=== PATIENT | female | born 1945 | race Caucasian/White ===

== ENCOUNTER → 2020-05-15 08:26 | Outpatient (CLI) | payer MEDICARE, BC ==
[2020-05-15 09:22] LABS: INR 0.93 (0.85-1.17); PROTIME 12.5 SECONDS (11.6-15.0)
[2020-05-15 09:26] LABS: UDS - AMPHET NEGATIVE QUAL (NEGATIVE); UDS - BARB NEGATIVE QUAL (NEGATIVE); UDS - BENZO NEGATIVE QUAL (NEGATIVE); UDS - COCAINE NEGATIVE QUAL (NEGATIVE); UDS - OPIATE NEGATIVE QUAL (NEGATIVE); UDS - PCP NEGATIVE QUAL (NEGATIVE); UDS - THC NEGATIVE QUAL (NEGATIVE)
[2020-05-15 09:39] LABS: ALBUMIN 4.2 g/dL (3.4-5.0); ANION GAP 9.8 mmol/L (8-16); BILIRUBIN - TOTAL 0.43 mg/dL (0.2-1.3); CALCIUM 9.1 mg/dL (8.5-10.1); CARBON DIOXIDE 30.2 mmol/L (21.0-32.0); CREATININE - SERUM 0.8 mg/dL (0.6-1.3); PROTEIN - SERUM 8.8 g/dL (6.4-8.2); THYROID STIMULATING HORMONE 0.82 uIU/mL (0.36-3.74)
[2020-05-15 10:10] LABS: ERYTHROCYTE SEDIMENTATION RATE 16 mm/hr (0-30)
[2020-05-16 08:12] LABS: HEPATITIS C ANTIBODY >11.0 S/CO RAT (0.0-0.9)
[2020-05-16 10:12] LABS: ANA REFLEX - DIRECT Negative (Negative)
[2020-05-16 16:09] LABS: ALPHA FETOPROTEIN -(TUMOR MRK) 7.1 ng/mL (0.0-8.3)
[2020-05-17 13:12] LABS: MITOCHONDRIAL ANTIBODY 165.6 Units (0.0-20.0); SMOOTH MUSCLE ABS (ACTIN) 23 Units (0-19)
== END | disposition home or self-care (01) ==
LOC: D.LAB 08:26
PROVIDERS: ATTEND Nurse Practitioner Acute Care
DX: Z11.4 Encounter for screening for human immunodeficiency virus [HIV] (principal); R53.83 Other fatigue; B18.2 Chronic viral hepatitis C; Z12.11 Encounter for screening for malignant neoplasm of colon